=== PATIENT | female | born 1960 | race Caucasian/White ===

== ENCOUNTER 2021-02-02 04:24 | Day surgery (SDC) | payer OTHER ==
[2021-02-01 13:57] VITALS: BMI 27.6
[2021-02-02] MEDS ORDERED: LIDOCAINE HCL 1%, 10 MG/ML (20ML VIAL) ONE (09:46)
[2021-02-02] MEDS ORDERED: MIDAZOLAM HCL 2 MG/2 ML SINGLE DOSE VIAL ONE ×2 (10:49→11:00)
[2021-02-02] MEDS ORDERED: PROPOFOL 20 ML ONE (11:00)
[2021-02-02] MEDS ORDERED: ceFAZolin SODIUM 1 GM VIAL ONE (11:11)
[2021-02-02] MEDS ORDERED: ceFAZolin SODIUM 1 GM VIAL IVPB ONE (11:13)
[2021-02-02] MEDS ORDERED: LIDOCAINE HCL 1%, 10 MG/ML (20ML VIAL) INF ONE ×2 (11:19)
[2021-02-02 14:54] VITALS: BP 110/70; PULSE 80; TEMP 98
== END 2021-02-02 14:45 | disposition home or self-care (01) ==
LOC: JASU-SURG 04:24
PROVIDERS: ATTEND Surgery
PROC: 0HBT0ZZ Excision of Right Breast, Open Approach (ICD-10-PCS; principal; 2021-02-02 11:00)
DX: D24.1 Benign neoplasm of right breast (principal)
CPT/HCPCS: 19281; 76098-TC-FY; 82962; 88307-TC; 94760